=== PATIENT | female | born 1945 | race Caucasian/White ===

== ENCOUNTER 2017-03-01 08:29 | Day surgery (SDC) | payer OTHER ==
[~2017-03-01] VITALS: Ht 166.4 cm; Wt 95.3 kg
[~2017-03-01 08:29] MED LIST: ADVIL200 MG PO; CRESTOR40 MG PO; HYDROCHLOROTHIA25 MG PO; LO-DOSE ASPIRIN81 M2 PO; LOPRESSOR50 MG PO; NEXIUM40 MG PO; NORVASC5 MG PO; PRINIVIL10 MG PO
== END 2017-03-01 09:55 | disposition home or self-care (01) ==
LOC: PAIN 08:29 → SDC 09:00 → PAIN 09:55
PROC: 3E0S33Z Introduction of Anti-inflammatory into Epidural Space, Percutaneous Approach (ICD-10-PCS; principal; 2017-03-01)
DX: M47.816 Spondylosis without myelopathy or radiculopathy, lumbar region (principal); M53.3 Sacrococcygeal disorders, not elsewhere classified; I25.10 Atherosclerotic heart disease of native coronary artery without angina pectoris; Z95.5 Presence of coronary angioplasty implant and graft; Z85.3 Personal history of malignant neoplasm of breast; Z96.652 Presence of left artificial knee joint; Z98.1 Arthrodesis status; K21.9 Gastro-esophageal reflux disease without esophagitis; M19.90 Unspecified osteoarthritis, unspecified site; Z79.82 Long term (current) use of aspirin
CPT/HCPCS: J1030; J3010

== ENCOUNTER 2017-04-01 07:22 | Day surgery (SDC) | payer OTHER ==
[~2017-04-01] VITALS: Ht 165.1 cm; Wt 108.4 kg
== END 2017-04-01 09:05 | disposition home or self-care (01) ==
LOC: PAIN 07:22 → SDC 08:00 → PAIN 09:05
PROC: 3E0S33Z Introduction of Anti-inflammatory into Epidural Space, Percutaneous Approach (ICD-10-PCS; principal; 2017-04-01)
DX: M47.26 Other spondylosis with radiculopathy, lumbar region (principal); M53.3 Sacrococcygeal disorders, not elsewhere classified; Z98.1 Arthrodesis status; F41.9 Anxiety disorder, unspecified; I25.10 Atherosclerotic heart disease of native coronary artery without angina pectoris; Z95.5 Presence of coronary angioplasty implant and graft; Z96.652 Presence of left artificial knee joint; Z85.3 Personal history of malignant neoplasm of breast; J44.9 Chronic obstructive pulmonary disease, unspecified; K21.9 Gastro-esophageal reflux disease without esophagitis; E78.5 Hyperlipidemia, unspecified; I10 Essential (primary) hypertension; E66.9 Obesity, unspecified; Z68.39 Body mass index [BMI] 39.0-39.9, adult
CPT/HCPCS: J1030; J2250; J3010; S0020

== ENCOUNTER 2018-02-13 10:22 | Emergency (ER) | payer OTHER ==
[~2018-02-13] VITALS: Ht 167.6 cm; Wt 101.8 kg
[2018-02-13 10:53] LABS: HEMATOCRIT 45.9 % (36.0-46.0); MCH 29.2 PG (29.0-34.0); MCHC 32.7 G/DL (30.0-36.0); MCV 89.5 FL (83-99); PLATELET COUNT 203 K/uL (156-360); RBC DIS.WIDTH-CV 13.7 % (11.8-14.6); RBC DIS.WIDTH-SD 44.8 % (39-53); RED BLOOD COUNT 5.13 M/uL (3.80-5.20); WHITE BLOOD COUNT 7.9 K/uL (4.1-10.2)
[2018-02-13 11:22] LABS: CHLORIDE 105 MEQ/L (99-109); POTASSIUM 3.9 MEQ/L (3.7-5.4); SODIUM 141 MEQ/L (136-147)
[2018-02-13 11:27] LABS: CREATININE 0.7 MG/DL (0.6-1.3); GFR ESTIMATE (CALCULATED) > 59 mL/min/; GLUCOSE 104 mg/dL (70-99); UREA NITROGEN (BUN) 14 mg/dL (9-23)
[2018-02-13] MEDS ORDERED: VENTOLIN HFA18 GM IH (12:35)
[2018-02-13] MEDS ORDERED: PREDNISONE50 MG PO (12:35)
[2018-02-13] MEDS ORDERED: PERCOCET 5/31 TABLET PO (12:35)
[2018-02-13] MEDS ORDERED: VALTREX1000 MG PO (12:35)
[2018-02-13 12:59] VITALS: BP 145/82
== END 2018-02-13 12:59 | disposition home or self-care (01) ==
LOC: EME 10:22
DX: J44.1 Chronic obstructive pulmonary disease with (acute) exacerbation (principal); B02.9 Zoster without complications; I25.10 Atherosclerotic heart disease of native coronary artery without angina pectoris; E78.5 Hyperlipidemia, unspecified; Z85.3 Personal history of malignant neoplasm of breast; Z96.652 Presence of left artificial knee joint; Z95.5 Presence of coronary angioplasty implant and graft; Z90.11 Acquired absence of right breast and nipple
CPT/HCPCS: 71046; 80048; 85027; 94640; 99281; 99284; J7512